=== PATIENT | female | born 1955 | race Caucasian/White ===

== ENCOUNTER 2016-06-04 08:21 | Outpatient (CLI) | payer OTHER | END 2016-06-04 08:22 | disposition home or self-care (01) | DX: E03.9 Hypothyroidism, unspecified (principal); Z79.899 Other long term (current) drug therapy ==

== ENCOUNTER 2016-07-23 10:31 | Outpatient (CLI) | payer OTHER | END 2016-07-23 10:32 | disposition home or self-care (01) | DX: J18.1 Lobar pneumonia, unspecified organism (principal); Z01.812 Encounter for preprocedural laboratory examination; G89.29 Other chronic pain; E03.9 Hypothyroidism, unspecified; Z79.899 Other long term (current) drug therapy ==

== ENCOUNTER 2016-09-23 13:45 | Outpatient (CLI) | payer OTHER ==
[2016-09-23 20:18] LABS: CREATININE 0.8 mg/dL (0.4-1.0)
== END 2016-09-23 13:46 | disposition home or self-care (01) ==
LOC: LAB.R 13:45
PROVIDERS: ATTEND Internal Medicine
DX: R94.4 Abnormal results of kidney function studies (principal)
CPT/HCPCS: 82565; 84443; 87086

== ENCOUNTER 2016-10-01 10:34 | Outpatient (CLI) | payer OTHER ==
[2016-10-01 17:56] LABS: BILIRUBIN,URINE NEGATIVE (NEGATIVE); PH,URINE 7.5 PH (5.0-7.5)
[2016-10-01 17:57] LABS: UA CHARGE (STRIP ONLY) YES; UR CULTURE IF IND NOT INDICATED
== END 2016-10-01 10:35 | disposition home or self-care (01) ==
LOC: LAB.F 10:34
PROVIDERS: ATTEND Physician Assistant Medical
DX: R31.9 Hematuria, unspecified (principal)
CPT/HCPCS: 81001; 81003; 87086

== ENCOUNTER 2016-12-30 07:18 | Outpatient (CLI) | payer OTHER ==
[2016-12-30 10:47] LABS: BASOPHILS # (AUTO) 0.1 10^3/uL (0.0-0.1); BASOPHILS % (AUTO) 1.6 %; EOSINOPHILS # (AUTO) 0.2 10^3/uL (0.0-0.7); EOSINOPHILS % (AUTO) 4.1 %; HGB - HEMOGLOBIN 12.5 g/dL (12.0-16.0); LYMPHOCYTES # (AUTO) 1.2 10^3/uL (1.5-3.5); LYMPHOCYTES % (AUTO) 23.4 %; MEAN CORPUSCULAR HEMOGLOBIN 29.9 pg (27.0-31.0); MEAN CORPUSCULAR HGB CONC 33.8 g/dL (32.0-36.0); MEAN CORPUSCULAR VOLUME 88.5 fL (81.0-99.0); MEAN PLATELET VOLUME 8.1 fL (7.9-10.8); MONOCYTES # (AUTO) 0.6 10^3/uL (0.0-1.0); MONOCYTES % (AUTO) 10.8 %; NEUTROPHILS # (AUTO) 3.2 10^3/uL (1.5-6.6); NEUTROPHILS % (AUTO) 60.1 %; NUCLEATED RED BLOOD CELLS AUTO 0.1 /100WBC; RED BLOOD COUNT 4.18 10^6/uL (4.20-5.40); RED CELL DISTRIBUTION WIDTH 13.2 % (12.0-15.0); UNCORRECTED WHITE BLOOD COUNT 5.3 x10^3/uL; WHITE BLOOD COUNT 5.3 x10^3/uL (4.8-10.8)
[2016-12-30 10:53] LABS: BILIRUBIN,URINE NEGATIVE (NEGATIVE)
[2016-12-30 10:56] LABS: UA CHARGE (STRIP ONLY) YES; UR CULTURE IF IND NOT INDICATED
[2016-12-30 11:18] LABS: ALBUMIN/GLOBULIN RATIO 1.5 (1.0-2.2); BILIRUBIN,TOTAL 0.9 mg/dL (0.2-1.0); BUN - BLOOD UREA NITROGEN 20 mg/dL (6-20); CALCIUM 9.5 mg/dL (8.5-10.3); CARBON DIOXIDE - CO2 26 mmol/L (21-32); CHLORIDE 106 mmol/L (101-111); CHOL/HDL RATIO 4.5 (<4.4); CHOLESTEROL 264 mg/dL; CREATININE 0.8 mg/dL (0.4-1.0); GFR - MDRD 73 (>89); GLUCOSE 95 mg/dL (70-100); HDL CHOLESTEROL 59 mg/dL; LDL/HDL RATIO 3.1 (<4.4); POTASSIUM 3.8 mmol/L (3.5-5.0); SODIUM 140 mmol/L (135-145); TOTAL PROTEIN 6.6 g/dL (6.7-8.2); TRIGLYCERIDES 119 mg/dL; VLDL CHOLESTEROL 24 mg/dL
== END 2016-12-30 07:19 | disposition home or self-care (01) ==
LOC: LAB.F 07:18
PROVIDERS: ATTEND Physician Assistant Medical
DX: Z00.00 Encounter for general adult medical examination without abnormal findings (principal); R35.0 Frequency of micturition; E55.9 Vitamin D deficiency, unspecified; Z79.899 Other long term (current) drug therapy; D72.819 Decreased white blood cell count, unspecified
CPT/HCPCS: 36415; 80053; 80061; 81001; 81003; 82306; 84443; 85025; 86803; 87086

== ENCOUNTER 2017-10-19 09:36 | Outpatient (CLI) | END 2017-10-19 09:37 | disposition home or self-care (01) ==

== ENCOUNTER 2017-10-22 08:00 | Outpatient (CLI) | payer OTHER ==
[2017-10-22 13:41] LABS: BASOPHILS # (AUTO) 0.1 10^3/uL (0.0-0.1); BASOPHILS % (AUTO) 1.4 %; EOSINOPHILS # (AUTO) 0.2 10^3/uL (0.0-0.7); EOSINOPHILS % (AUTO) 3.2 %; HGB - HEMOGLOBIN 13.4 g/dL (12.0-16.0); LYMPHOCYTES # (AUTO) 1.4 10^3/uL (1.5-3.5); LYMPHOCYTES % (AUTO) 24.9 %; MEAN CORPUSCULAR HEMOGLOBIN 30.6 pg (27.0-31.0); MEAN CORPUSCULAR HGB CONC 33.5 g/dL (32.0-36.0); MEAN CORPUSCULAR VOLUME 91.2 fL (81.0-99.0); MONOCYTES # (AUTO) 0.7 10^3/uL (0.0-1.0); MONOCYTES % (AUTO) 11.8 %; NEUTROPHILS # (AUTO) 3.3 10^3/uL (1.5-6.6); NEUTROPHILS % (AUTO) 58.7 %; PLT - PLATELET COUNT 289 10^3/uL (130-450); RED BLOOD COUNT 4.37 10^6/uL (4.20-5.40); RED CELL DISTRIBUTION WIDTH 13.2 % (12.0-15.0); WHITE BLOOD COUNT 5.6 x10^3/uL (4.8-10.8)
== END 2017-10-22 08:01 | disposition home or self-care (01) ==
LOC: LAB.R 08:00
PROVIDERS: ATTEND Physician Assistant Medical
DX: Z79.899 Other long term (current) drug therapy (principal)
CPT/HCPCS: 85025

== ENCOUNTER 2018-03-15 07:15 | Outpatient (CLI) | payer OTHER ==
[2018-03-15 13:32] LABS: BASOPHILS # (AUTO) 0.1 10^3/uL (0.0-0.1); BASOPHILS % (AUTO) 1.7 %; EOSINOPHILS # (AUTO) 0.2 10^3/uL (0.0-0.7); EOSINOPHILS % (AUTO) 3.9 %; HGB - HEMOGLOBIN 12.6 g/dL (12.0-16.0); LYMPHOCYTES # (AUTO) 1.1 10^3/uL (1.5-3.5); LYMPHOCYTES % (AUTO) 26.7 %; MEAN CORPUSCULAR HEMOGLOBIN 30.9 pg (27.0-31.0); MEAN CORPUSCULAR HGB CONC 33.8 g/dL (32.0-36.0); MEAN CORPUSCULAR VOLUME 91.5 fL (81.0-99.0); MEAN PLATELET VOLUME 7.7 fL (7.9-10.8); MONOCYTES # (AUTO) 0.5 10^3/uL (0.0-1.0); MONOCYTES % (AUTO) 11.8 %; NEUTROPHILS # (AUTO) 2.4 10^3/uL (1.5-6.6); NEUTROPHILS % (AUTO) 55.9 %; PLT - PLATELET COUNT 270 10^3/uL (130-450); RED BLOOD COUNT 4.08 10^6/uL (4.20-5.40); RED CELL DISTRIBUTION WIDTH 13.1 % (12.0-15.0); WHITE BLOOD COUNT 4.3 x10^3/uL (4.8-10.8)
[2018-03-15 14:17] LABS: ALBUMIN 3.9 g/dL (3.2-5.5); ALBUMIN/GLOBULIN RATIO 1.4 (1.0-2.2); ALKALINE PHOSPHATASE 66 IU/L (42-121); ALT ALANINE AMINOTRANSFERASE 15 IU/L (10-60); AST ASPARTATE AMINOTRANSFERASE 19 IU/L (10-42); BILIRUBIN,TOTAL 0.9 mg/dL (0.2-1.0); BUN - BLOOD UREA NITROGEN 13 mg/dL (6-20); CARBON DIOXIDE - CO2 28 mmol/L (21-32); CHLORIDE 103 mmol/L (101-111); CHOL/HDL RATIO 3.8 (<4.4); CHOLESTEROL 240 mg/dL; CREATININE 0.9 mg/dL (0.4-1.0); GFR - MDRD 63 (>89); GLUCOSE 90 mg/dL (70-100); HDL CHOLESTEROL 63 mg/dL; LDL CHOLESTEROL,CALCULATED 161 mg/dL; LDL/HDL RATIO 2.6 (<4.4); SODIUM 137 mmol/L (135-145); TOTAL PROTEIN 6.6 g/dL (6.7-8.2); VLDL CHOLESTEROL 16 mg/dL
== END 2018-03-15 07:16 | disposition home or self-care (01) ==
LOC: LAB.F 07:15
PROVIDERS: ATTEND Physician Assistant Medical
DX: Z00.00 Encounter for general adult medical examination without abnormal findings (principal); Z79.899 Other long term (current) drug therapy; E55.9 Vitamin D deficiency, unspecified
CPT/HCPCS: 36415; 80053; 80061; 82306; 83721; 84443; 85025

== ENCOUNTER 2018-06-20 10:15 | Outpatient (CLI) | payer OTHER ==
[2018-06-20 18:47] LABS: BUN - BLOOD UREA NITROGEN 15 mg/dL (6-20); CARBON DIOXIDE - CO2 27 mmol/L (21-32); CHLORIDE 102 mmol/L (101-111); CHOL/HDL RATIO 4.5 (<4.4); CHOLESTEROL 251 mg/dL; CREATININE 0.7 mg/dL (0.4-1.0); GFR - MDRD 85 (>89); GLUCOSE 91 mg/dL (70-100); HDL CHOLESTEROL 56 mg/dL; LDL CHOLESTEROL,CALCULATED 156 mg/dL; LDL/HDL RATIO 2.8 (<4.4); SODIUM 137 mmol/L (135-145); VLDL CHOLESTEROL 39 mg/dL
== END 2018-06-20 10:16 | disposition home or self-care (01) ==
LOC: LAB.F 10:15
PROVIDERS: ATTEND Physician Assistant Medical
DX: N18.2 Chronic kidney disease, stage 2 (mild) (principal); Z79.899 Other long term (current) drug therapy; E03.9 Hypothyroidism, unspecified; E78.2 Mixed hyperlipidemia
CPT/HCPCS: 36415; 80048; 80061; 81001; 81003; 83721; 84443; 87086

== ENCOUNTER 2018-06-21 08:58 | Outpatient (CLI) | payer OTHER ==
[2018-06-21 10:48] LABS: BILIRUBIN,URINE NEGATIVE (NEGATIVE); GLUCOSE, URINE (UA) NEGATIVE (NEGATIVE); KETONES,URINE (UA) NEGATIVE (NEGATIVE); LEUKOCYTE ESTERASE, URINE NEGATIVE (NEGATIVE); NITRITE,URINE NEGATIVE (NEGATIVE); OCCULT BLOOD,URINE TRACE-INTA (NEGATIVE); PH,URINE 7.5 PH (5.0-7.5); PROTEIN,URINE NEGATIVE (NEGATIVE); UROBILINOGEN,URINE 0.2 (NORMAL) E.U./dL (NORMAL)
[2018-06-21 10:53] LABS: CLARITY,URINE CLEAR (CLEAR)
== END 2018-06-21 08:59 | disposition home or self-care (01) ==
LOC: LAB.F 08:58
PROVIDERS: ATTEND Physician Assistant Medical
DX: N18.2 Chronic kidney disease, stage 2 (mild) (principal)
CPT/HCPCS: 36415; 80048; 81001; 81003; 87086

== ENCOUNTER 2018-08-16 13:39 | Outpatient (CLI) | payer OTHER ==
--- NOTE | 2018-08-17 09:07 | Mammography Report ---
Reason: MAMMOGRAPHIC SCREENING FOR BREAST CANCER Procedure Date: 08/16/2018 Accession Number: [id number] / [id number] Procedure: DENNIS - Screening Mammo w/Dong CPT Code: FULL RESULT: EXAM: Screening Mammo w/Dong DATE: 08/16/2018 2:04 PM CLINICAL HISTORY: Screening encounter. History of nulliparity. TECHNIQUE: (B) - Bilateral CC and MLO views were obtained. COMPARISON: 01/13/2016 through 08/18/2008. PARENCHYMAL PATTERN: (A) - The breast(s) demonstrate(s) scattered fibroglandular densities. FINDINGS: There are no suspicious masses, calcifications, or areas of distortion. IMPRESSION: Negative examination. BI-RADS category 1. RECOMMENDATION: (ANNUAL) - Recommend routine annual screening mammography. BI-RADS CATEGORY: (1) - Negative. STANDARD QUALIFYING STATEMENTS: 1. This examination was not reviewed with the aid of Computer-Aided Detection (CAD). 2. A negative or benign imaging report should not preclude biopsy if clinically suspicious findings are present. 3. Dense breasts may obscure an underlying neoplasm. 4. This examination was reviewed with the aid of 3D breast imaging (tomosynthesis).
== END 2018-08-16 13:40 | disposition home or self-care (01) ==
LOC: DI 13:39
DX: Z12.31 Encounter for screening mammogram for malignant neoplasm of breast (principal)
CPT/HCPCS: 77063; 77067

== ENCOUNTER 2019-02-22 10:29 | Day surgery (SDC) | payer OTHER ==
[2019-02-22] MEDS ORDERED: PIPERACILLIN/TAZOBACTAM 3.375 GM in SODIUM CHLORIDE 0.9% MINIBAG 100 ML IV ONE (10:30)
[2019-02-22] MEDS ORDERED: MIDAZOLAM 2 MG/2 ML VIAL IVP ONE (10:30)
[2019-02-22] MEDS ORDERED: fentaNYL 250 MCG/5 ML VIAL IVP ONE (10:30)
[2019-02-22] MEDS ORDERED: LACTATED RINGERS 1,000 ML IV ONE (10:39)
[2019-02-22] MEDS ORDERED: CEFOTETAN DISODIUM 2 GM in SODIUM CHLORIDE 0.9% MINIBAG 100 ML IV ONE (11:00)
[2019-02-22 13:42] VITALS: BP 112/64
== END 2019-02-22 10:30 | disposition home or self-care (01) ==
LOC: SDS 10:29
PROVIDERS: ATTEND Surgery
PROC: 0DJD8ZZ Inspection of Lower Intestinal Tract, Via Natural or Artificial Opening Endoscopic (ICD-10-PCS; principal; 2019-02-22 12:15)
DX: Z12.11 Encounter for screening for malignant neoplasm of colon (principal); K64.8 Other hemorrhoids; Z86.010 Personal history of colon polyps; Z80.0 Family history of malignant neoplasm of digestive organs
CPT/HCPCS: 45378; J3010; J7120

== ENCOUNTER 2020-11-26 11:49 | Outpatient (CLI) | payer MEDICARE, BC ==
--- NOTE | 2020-11-26 12:43 | CARDIAC PROCEDURE NOTE ---
Stress Test Report Service Date: 11/26/20 Service Time: 12:30 Ordering Provider: JASMYNE Phillips Indication for Test: Dyspnea, during, and especially following, exercise, latter with diaphoresis. Significant Medical History: Generally healthy woman who is s/p successful bilateral hip replacement surgeries a few years ago, with some left knee DJD, and hypothyroidism. She remains physically active, walking, bicycling and using a chain saw to maintain her [place]. About 6 months ago she began to note slight increase in exertional dyspnea with persistence after stopping exercise, along with more diaphoresis than she recalled experiencing previously. Was referred for evaluation after an episode with increased severity about 8 weeks ago. Overall she believes her exercise capacity remains intact. Cardiac Risk Factors: Only traditional ASCVD risk factor is untreated dyslipidemia, with reported elevated LDL cholesterol and decreased HDL cholesterol. She denies history of tobacco smoking ever, hypertension, diabetes, or awareness of coronary heart disease or stroke in any first-degree relative. Type of Stress Test: ETT with Echocardiography Procedure: -Treadmill Stress Echocardiogram Test- After signing informed consent, the patient's resting echocardiogram images were obtained. The patient then performed treadmill exercise using a Abilio protocol. The patient exercised for 6 minutes 54 seconds and achieved a peak heart rate of 164 (105 percent predicted maximum heart rate for age), and an estimated workload of 8.4 METS. The test was terminated due to achieving target heart rate with fatigue. She did not experience marked dyspnea. Resting heart rate: 57 Peak heart rate: 164 Normal response to exercise. Resting BP: 114/70 Peak BP: 140/63 Normal BP response to exercise. Rhythm during exercise: Sinus rhythm throughout. Symptoms: She did not experience marked exertional dyspnea, either during exercise or in the recovery period; she was not aware of marked diaphoresis. EKG at rest showed normal sinus rhythm, normal in all aspects. EKG at peak stress showed J-point depression, NOT meeting EKG criteria for ischemia. In Recovery HR rapidly returned to baseline, without associated symptoms (as stated above). Echo imaging performed at rest and with stress will be reported separately. Bull Nogueira MD, was present throughout this treadmill stress echocardiogram and supervised the test in all aspects. Summary: 1) Average exercise tolerance for age as evidenced by JONATHAN of 0% (active scale). 2) Normal resting EKG. 3) Adequate level of exercise was achieved on this treadmill stress test. 4) Normal BP response to exercise. 5) No ischemic changes by EKG criteria were seen at peak exercise. 6) Echo imaging pre-stress revealed normal left ventricular wall motion throughout, with ejection fraction (EF) 65%. Imaging following peak stress revealed normal hyperdynamic augmentation of all segments, with EF 75%. See separate Echo report for more detail. 7) This is a low-risk stress test, with no evidence of ischemia by symptoms, EKG monitoring or echo imaging, in a patient with exercise tolerance that was average for age and gender.
== END 2020-11-26 11:50 | disposition home or self-care (01) ==
LOC: DI 11:49
PROVIDERS: ATTEND Registered Nurse
DX: R06.09 Other forms of dyspnea (principal); E78.5 Hyperlipidemia, unspecified
CPT/HCPCS: 93016; 93018; 93350

== ENCOUNTER 2021-06-25 12:20 | Outpatient (CLI) | payer MEDICARE, BC ==
--- NOTE | 2021-06-26 07:58 | XRAY Report ---
PROCEDURE: Lumbar Spine 2 View INDICATIONS: ACUTE BACK PAIN WITH SCIATICA TECHNIQUE: 3 views of the lumbar spine were acquired. COMPARISON: None. FINDINGS: Bones: 5 [id number] vertebrae are present. There is normal bony alignment. No vertebral body compression fractures. No suspicious bony lesions. Moderate degenerative disc disease at T12-L1, L1- L2, L3 and L4 and L5-S1. Severe facet arthropathy at L4-L5 and L5-S1. Soft tissues: Overlying bowel gas pattern is normal. No suspicious soft tissue calcifications. IMPRESSION: Moderate degenerative disc disease and the facet arthropathy in lumbar spine. MRI be hel pful given patient's symptoms of sciatica. Reviewed by: Curtis Perez MD on 06/26/2021 7:57 AM PST Approved by: Curtis Perez MD on 06/26/2021 7:57 AM PST Station ID: [id number]
== END 2021-06-25 12:21 | disposition home or self-care (01) ==
LOC: DI.S 12:20
PROVIDERS: ATTEND Physician Assistant
DX: M47.816 Spondylosis without myelopathy or radiculopathy, lumbar region (principal); M47.817 Spondylosis without myelopathy or radiculopathy, lumbosacral region; M51.36 Other intervertebral disc degeneration, lumbar region; M51.37 Other intervertebral disc degeneration, lumbosacral region

== ENCOUNTER 2023-07-27 13:03 | Outpatient (CLI) | payer MEDICARE, BC ==
--- NOTE | 2023-07-28 10:12 | Mammography Report ---
BILATERAL DIGITAL SCREENING MAMMOGRAM 3D/2D: 07/27/2023 CLINICAL: Routine screening. Comparison is made to exams dated: 12/10/2021 mammogram, 08/16/2018 mammogram, and 01/13/2016 mammogram - [facility]. Both breasts are heterogeneously dense, which may obscure small masses (category c / 51-75% glandular tissue). No significant masses, calcifications, or other findings are seen in either breast. There has been no significant interval change. IMPRESSION: NEGATIVE There is no mammographic evidence of malignancy. A 1 year screening mammogram is recommended. Based on the Tyrer Cuzick model (a risk assessment model) the patient's lifetime risk is 9.6% and her 10 year risk is 5.4%. According to the ACR, ACS, and NCCN guidelines, an annual breast MRI exam elva g with mammogram is recommended if the patient's lifetime risk is 20% or greater. This exam was interpreted at Station ID: [id number]. NOTE: For mammograms, a report in lay terms will be sent to the patient. Approximately 15% of breast malignancies will not be visualized mammographically. In the management of a palpable breast mass, a negative mammogram must not discourage biopsy of a clinically suspicious lesion. Electronically Signed By: Kobe [email or web address]:07/27/2023 14:59:08 letter sent: No_Letter ACR BI-RADS Category 1: Negative 3341F PARENCHYMAL PATTERN: (D) - The breast(s) demonstrate(s) heterogeneously dense fibroglandular jaren wiley. BI-RADS CATEGORY: (1) - 1 RECOMMENDATION: (ANNUAL) - Recommend routine annual screening mammography. [id number] 1 year screening LATERALITY: (B)
== END 2023-07-27 13:04 | disposition home or self-care (01) ==
LOC: DI 13:03
PROVIDERS: ATTEND Registered Nurse
DX: Z12.31 Encounter for screening mammogram for malignant neoplasm of breast (principal); R92.333 Mammographic heterogeneous density, bilateral breasts

== ENCOUNTER 2023-07-27 13:04 | Outpatient (CLI) | payer MEDICARE, BC ==
--- NOTE | 2023-07-27 14:14 | XRAY Report ---
PROCEDURE: Wrist 3+V RT INDICATIONS: RIGHT WRIST PAIN TECHNIQUE: 3 views of the wrist were acquired. COMPARISON: None. FINDINGS: Bones: Moderate degenerative changes at the STT and first CMC joint. Mild degenerative changes seen elsewhere. No acute fracture or dislocation. Soft tissues: No suspicious calcifications. IMPRESSION: Moderate degenerative changes at the first CMC and STT joints. Mild degenerative changes elsewhere. I f there is high concern for further derangement, consider MRI evaluation. Reviewed by: Jimmy Avina MD on 07/27/2023 2:12 PM PDT Approved by: Jimmy Avina MD on 07/27/2023 2:12 PM PDT Station ID: [id number]
--- NOTE | 2023-07-27 14:15 | XRAY Report ---
PROCEDURE: Knee 3V LT INDICATIONS: LEFT KNEE PAIN TECHNIQUE: 3 views of the knee(s) were acquired. COMPARISON: None. FINDINGS: Bones: Moderate to severe degenerative changes, particularly at the medial and patellofemoral compart ments. Osteophytosis. Patellar enthesopathy. No displaced acute fracture or dislocation. Soft tissues: Small knee joint effusion. IMPRESSION: Moderate to severe knee degenerative changes, particularly at the patellofemoral and medial compartme nts. If there is high concern for further derangement, consider MRI evaluation. Reviewed by: Jimmy Avina MD on 07/27/2023 2:13 PM PDT Approved by: Jimmy Avina MD on 07/27/2023 2:13 PM PDT Station ID: [id number]
== END 2023-07-27 13:05 | disposition home or self-care (01) ==
LOC: DI 13:04
PROVIDERS: ATTEND Registered Nurse
DX: M18.11 Unilateral primary osteoarthritis of first carpometacarpal joint, right hand (principal); M19.031 Primary osteoarthritis, right wrist; M17.12 Unilateral primary osteoarthritis, left knee

== ENCOUNTER 2023-09-08 13:47 | Outpatient (CLI) | payer MEDICARE, BC ==
--- NOTE | 2023-09-08 21:19 | DEXA Report ---
PROCEDURE: Dexa Spine and/or Hip INDICATIONS: POST MENOPAUSAL TECHNIQUE: Dual energy x-ray absorptiometry (DXA) was performed on a [employer]. Regions measur ed are the AP Spine, femoral neck, and if needed forearm. Patient is status post bilateral hip arthro plasty. COMPARISON: None FINDINGS: Lumbar Spine: Bone Mineral Density: 1.154 g/cm/cm,T score: -0.2. Left Forearm: Bone Mineral Density: 0.938 g/cm/cm, T score: 0.7 . (T score greater or equal to -1.0: NORMAL) (T score from -1.1 to -2.4: OSTEOPENIA) (T score less than or equal to -2.5 to: OSTEOPOROSIS) Impression: By WHO criteria, this patient has normal bone density. Patients with diagnosis of osteoporosis or osteopenia should have regular bone mineral density assess ment. For those eligible for Medicare, routine testing is allowed once every 2 years. Testing frequ ency can be increased for patients who have rapidly progressing disease or for those who are receivin g medical therapy to restore bone mass. Reviewed by: Robel Bowman MD on 09/08/2023 9:18 PM PDT Approved by: Robel Bowman MD on 09/08/2023 9:18 PM PDT Station ID: [id number]
== END 2023-09-08 13:48 | disposition home or self-care (01) ==
LOC: DI 13:47
PROVIDERS: ATTEND Registered Nurse
DX: Z78.0 Asymptomatic menopausal state (principal); Z96.643 Presence of artificial hip joint, bilateral